=== PATIENT | male | born 1950 | race Caucasian/White ===

== ENCOUNTER 2021-04-30 09:17 | Emergency (ER) | payer MEDICARE, OTHER, SELFPAY ==
[2021-04-30 09:21] VITALS: BP 156/86; PULSE 103; RESP 16; TEMP 36.7; O2SAT 96; BMI 30.7
--- NOTE | 2021-04-30 10:37 | DI.RAD.S_ITS ---
PROCEDURE: XR ABDOMEN MIN 2V INDICATIONS: constipation TECHNIQUE: 2 views of the abdomen were acquired. COMPARISON: None. FINDINGS: Surgical changes and devices: Suprapubic catheter noted. Bowel: No pneumoperitoneum. The bowel gas pattern is nonspecific Soft tissues: No masses; visualized solid organ contours appear normal in size. No suspicious abdominal calcifications. Bones: No suspicious bony abnormalities. IMPRESSION: Nonspecific bowel gas pattern without definite evidence of obstruction. If patient's symptoms persist or worsen, consider CT scan of the abdomen pelvis for additional evaluation. Dictated by: Juany Benitez MD, PhD on 04/30/2021 at 11:03 Approved by: Juany Benitez MD, PhD on 04/30/2021 at 11:05
--- NOTE | 2021-04-30 10:48 | PC.NURSE ---
Stephen flushed with 60mls of sterile water. Out put 1000mls. pt denies new pain or discomfort at this time. R total knee apr 27 pt complaints of constipation with mild abd discomfort. Pt reports taking his pain meds every 3 hrs (prescribed every 4) discomfort to bladder improved s/p stephen flushed
[2021-04-30 10:57] VITALS: PULSE 85; O2SAT 96
[2021-04-30 11:00] VITALS: PULSE 85; O2SAT 96
--- NOTE | 2021-04-30 11:04 | ED_ITS ---
HPI - Abdominal Pain General Chief Complaint: Urogenital-Male Stated Complaint: No bowel movements or urination post surgery Time Seen by Provider: 04/30/21 10:17 Source: patient Mode of arrival: Ambulatory Limitations: no limitations History of Present Illness HPI narrative: Patient is a 70-year-old male right total knee arthroplasty status post day number 3. The presents to today with constipation. He had a feliz rgery 3 days ago his last bowel movement was 4 days ago. He has been taking pain medications on a regular basis. He also has been taking MiraLax daily today he added 2 Senokot and has been drinking prune juice. He feels like he has pressure in his rectum but unable to go. He has also had urinary retention and Oneal catheter was placed postoperatively. It sounds as though is a difficult of Oneal catheter and urology had to place it with a guidewire. Initially catheter was not working he noticed some decreased drainage in his bag last night. Today the catheter has been flushed and now seems to be working appropriately. He has no abdominal pain he has no nausea or vomiting. Quite concerned without any bowel movements. He normally has multiple bowel movements daily Related Data Home Medications Medication Instructions Recorded Confirmed metformin 500 mg tablet,extended 500 mg PO BID #0 11/15/16 release 24 hr (Glucophage XR) Previous Rx's Medication Instructions Recorded azithromycin 250 mg tablet 250 mg PO SEE INSTRUCTIONS #6 tab 07/04/17 (Zithromax) mefloquine 250 mg tablet 250 mg PO QDAY #27 tab 07/04/17 sildenafil (pulm.hypertension) 20 20 mg PO SEE INSTRUCTIONS PRN #90 07/04/17 mg tablet tab typhoid polysacch vaccine 25 25 mcg IM ONCE #1 syr 07/04/17 mcg/0.5 mL intramuscular syringe (Typhim ) Allergies Allergy/AdvReac Type Severity Reaction Status Date / Time No Known Drug Allergies Allergy Unknown Verified 04/30/21 09:22 [NO KNOWN DRUG ALLERGIES] Review of Systems Review of Systems Narrative: GENERAL: Denies chills, fatigue, malaise, fever, sweats, travel HEENT: Denies sinus pain, ear pain, sore throat, difficulty swallowing, neck pain RESPIRATORY: Denies dyspnea, cough, wheezing, hemoptysis, sputum. CARDIOVASCULAR: Denies chest pain, palpitations, orthopnea, edema GASTROINTESTINAL: Constipation, see HPI : + BPH, Oneal catheter MUSCULOSKELETAL: Recent surgery right knee SKIN: No rash, no erythema, no pruritus NEUROLOGIC: Denies weakness, dizziness, headache, numbness, change in speech, confusion PSYCHIATRIC: No concerning psychosocial issues. 12 point review of systems is negative except for those stated above and HPI Patient History Social History Smoking Status: Unknown if ever smoked Smoking Status: Unknown if ever smoked alcohol intake frequency: 0-2 drinks per day Substance Use Type: does not use Exam Initial Vital Signs Initial Vital Signs: Vital Signs Temperature 98.1 F 04/30/21 09:21 Pulse Rate 103 H 04/30/21 09:21 Respiratory Rate 16 04/30/21 09:21 Blood Pressure 156/86 H 04/30/21 09:21 Pulse Oximetry 96 04/30/21 09:21 GENERAL: Alert well-appearing 62-year-old male and in no acute distress. HEENT: Head atraumatic,EOMI, pupils reactive, face symmetric, moist mucous membranes CARDIOVASCULAR: Regular rate and rhythm without murmurs, rubs or gallops. RESPIRATORY: Breath sounds equal bilaterally, no wheezes rales or rhonchi. ABDOMEN: Soft, nontender. Normoactive bowel sounds all 4 quadrants. No guarding or rebound. No distention : Oneal catheter placed flushed and working appropriately EXTREMITIES: Normal range of motion, no clubbing or edema. Neurovascularly intact NEUROLOGICAL: Alert and oriented x4.Normal gait and speech. SKIN: Warm, dry, no laceration, no petechiae, no rashes or lesions. Course Orders Ordered: ED Orders 04/30/21 10:37 XR abdomen min 2V Stat Vital Signs Vital signs: Vital Signs - 8 hr 04/30/21 10:57 04/30/21 11:00 04/30/21 11:30 Pulse Rate 85 85 79 Blood Pressure Pulse Oximetry 96 96 95 04/30/21 11:41 Pulse Rate 80 Blood Pressure 132/80 Pulse Oximetry 94 MDM - Abdominal Pain Imaging Data Abdominal x-ray: Radiologist's Impression: PROCEDURE:? XR ABDOMEN MIN 2V ? INDICATIONS:? constipation ? TECHNIQUE:? 2 views of the abdomen were acquired.? ? COMPARISON:? None. ? FINDINGS:? Surgical changes and devices:? Suprapubic catheter noted. ? Bowel:? No pneumoperitoneum.? The bowel gas pattern is nonspecific ? Soft tissues:? No masses; visualized solid organ contours appear normal in size.? No suspicious abdominal calcifications.? ? Bones:? No suspicious bony abnormalities.? ? IMPRESSION:? Nonspecific bowel gas pattern without definite evidence of obstruction.? If patient's symptoms persist or worsen, consider CT scan of the abdomen pelvis for additional evaluation. ? ? Dictated by: Juany Benitez MD, PhD on 04/30/2021 at 11:03 ? ? MDM Narrative Medical decision making narrative: Patient abdomen is soft. He did have some Oneal catheter drainage which has been flushed resolved and now the Oneal catheter is working appropriately. He is 3 days postoperative on pain medications with out a bowel movement. He is currently taking all outpatient medications as directed he feels like he has pressure in his rectum has not had a bowel movement. He took 2 Senokot this morning and has still been unsuccessful. At this time I provided reassurance. I do not think indicated for prescription laxative this time. I encouraged him to continue his [id number] counter bowel regimen. He is given strict return precautions and all questions have been addressed and answered Discharge Plan Departure Patient Disposition: Home Clinical Impression: Constipation Instructions: DI for Constipation Activity Restrictions/Additional Instructions: *You have been diagnosed with constipation *What to do: At this time constipation is likely multitude of factors including recent surgery, pain medications, decreased movement. I recommend continuing to increase her water intake increased movement as tolerated. 1 G of had a bowel movement I recommend backing off your laxatives and bowel regimen *Continue to take medications as directed MiraLax once daily as directed as needed for constipation Senokot-S 2 tabs twice a day as needed for constipation Colace 100 mg twice a day as needed for constipation *Follow up with your primary care provider in 2-3 days *Return to ER if you should have increasing abdominal pain, decreased urine output, at increasing nausea or vomiting any new, worsening or concerning symptoms Prescriptions: No Action metformin [Glucophage XR] 500 MG tablet extended release 24 hr 500 mg PO BID Qty: 0 RF: 0 azithromycin [Zithromax] 250 MG tablet 250 mg PO SEE INSTRUCTIONS Qty: 6 RF: 0 mefloquine 250 MG tablet 250 mg PO QDAY Qty: 27 RF: 0 typhoid polysacch vaccine [Typhim ] 25 MCG/0.5 ML syringe 25 mcg IM ONCE Qty: 1 RF: 0 sildenafil (pulm.hypertension) 20 MG tablet 20 mg PO SEE INSTRUCTIONS PRNQty: 90 RF: 2
[2021-04-30 11:30] VITALS: PULSE 79; O2SAT 95
[2021-04-30 11:41] VITALS: BP 132/80; PULSE 80; O2SAT 94
== END 2021-04-30 11:52 | disposition home or self-care (01) ==
PROVIDERS: Emergency Provider Emergency Medicine
DX: K59.00 Constipation, unspecified (principal); R33.9 Retention of urine, unspecified; Z98.890 Other specified postprocedural states
CPT/HCPCS: 51700; 51798; 74019; 99283; 99284

== ENCOUNTER 2021-05-05 17:58 | Emergency (ER) | payer MEDICARE, OTHER, SELFPAY ==
[2021-05-05] VITALS (7 sets, daily range): BP systolic 120–145; BP diastolic 73–80; PULSE 82–94; RESP 16; TEMP 37.1; O2SAT 95–97; BMI 22.2
--- NOTE | 2021-05-05 19:14 | PC.NURSE ---
Addendum entered by Cynthia Castro R.N. 05/05/21 20:19: Changed catheter bag, removed tape and bladder started draining freely. Addendum entered by Cynthia Castro R.N. 05/05/21 19:30: Flushed catheter, got multiple large clots out, flushed freely after. 400 total out of bladder. Original Note: Patient has indwelling stephen cath for urinary retention post knee replacement. Was flushed on Monday, returns for similar complaint.
--- NOTE | 2021-05-05 20:16 | ED.MALEGU ---
HPI - Male Genitourinary General Chief complaint: Urogenital-Male Stated complaint: plugged catheter Time Seen by Provider: 05/05/21 19:51 History of Present Illness HPI Narrative: Patient here with . Complaints of urinary retention despite having a Oneal catheter in place. Onset 2:00 p.m. today. Prior to 2:00 p.m. p.m. to urine bag about 800 mL of urine. Patient states it was placed on April 27 at [facility] for orthopedic surgery. No prior diagnosis of enlarged prostate. Urology had to place the Oneal catheter in during the visit for orthopedic surgery. Has follow-up appointment tomorrow with Urology. Adjustments to the catheter here allowed for improved flow of urine into the bag. Bladder scan completed. Please see nurse's notes. No recent illness. No fever chills. Related Data Home Medications Medication Instructions Recorded Confirmed metformin 500 mg tablet,extended 1,000 mg PO DAILY #0 11/15/16 05/05/21 release 24 hr (Glucophage XR) apixaban 5 mg tablet (Eliquis) 5 mg PO BID 05/05/21 05/05/21 sildenafil (pulm.hypertension) 20 20 mg PO SEE INSTRUCTIONS 05/05/21 05/05/21 mg tablet Allergies Allergy/AdvReac Type Severity Reaction Status Date / Time No Known Drug Allergies Allergy Unknown Verified 04/30/21 09:22 [NO KNOWN DRUG ALLERGIES] Review of Systems Review of Systems Narrative: GENERAL: Denies chills, fatigue, malaise, fever, sweats. HEENT: Denies sinus pain, ear pain, sore throat RESPIRATORY: Denies dyspnea, cough CARDIOVASCULAR: Denies chest pain, palpitations GASTROINTESTINAL: Denies nausea, vomiting, abdominal pain : Denies dysuria, frequency, hematuria, complaints retention MUSCULOSKELETAL: denies muscle or bony pain SKIN: Denies rash, skin lesions NEUROLOGIC: Denies weakness, numbness ROS Unobtainable: All systems reviewed & are unremarkable except as noted in HPI and below Patient History Social History Smoking Status: Unknown if ever smoked Smoking Status: Unknown if ever smoked alcohol intake frequency: 0-2 drinks per day Substance Use Type: does not use Exam Narrative Exam Narrative: GENERAL: in no distress, not toxic not dyspneic HEAD: Normocephalic. GASTROINTESTINAL: Abdomen soft, non-tender, no suprapubic distention or tenderness. Catheter in place. No blood at meatus. No erythema. NEURO: AOx4. SKIN: Warm and dry PSYCH: Not anxious, is cooperative Initial Vital Signs Initial Vital Signs: Vital Signs Temperature 98.7 F 05/05/21 18:04 Pulse Rate 94 H 05/05/21 18:04 Respiratory Rate 16 05/05/21 18:04 Blood Pressure 145/80 H 05/05/21 18:04 Pulse Oximetry 97 05/05/21 18:04 Course Course Course Narrative: Improved urine flow with catheter adjustments by nurse. Orders Ordered: ED Orders 05/05/21 20:12 Urinalysis and Microscopic Stat Urine Culture Stat Reevaluation(s) Reevaluation #1: Improved urine flow after adjustment of 2 being of the catheter by nurse. Time: 20:18 Vital Signs Vital signs: Vital Signs - 8 hr 05/05/21 18:53 05/05/21 19:00 05/05/21 19:30 Pulse Rate 94 H 89 90 Blood Pressure 124/73 127/79 Pulse Oximetry 97 95 96 05/05/21 20:00 05/05/21 20:30 05/05/21 21:00 Pulse Rate 87 86 82 Blood Pressure 121/74 132/79 120/73 Pulse Oximetry 96 96 95 MDM - Male Genitourinary Differential Diagnosis Differential diagnosis: Likely other (Oneal catheter malfunction/obstruction) Lab Data Labs: Lab Results 05/05/21 Range/Units 20:12 Urine Color Yellow Urine Appearance Clear Urine pH 5.5 (4.5-8.0) Ur Specific [place] 1.015 (1.000-1.035) Urine Protein Negative (Negative) Urine Glucose (UA) Trace H (Negative) g/dL Urine Ketones Negative (NEGATIVE) Urine Occult Blood 3+ H (Negative) Urine Nitrate Negative (Negative) Urine Bilirubin Negative (NEGATIVE) Urine Urobilinogen 0.2 (0.2) E.U./dL Ur Leukocyte Esterase Trace H (NEGATIVE) Urine RBC 5-10/hpf H (0-5/HPF) Urine WBC 5-10/hpf H (0-5/HPF) Urine Bacteria None seen (None) Ur Culture Indicated? Specimen cultured MDM Narrative Medical decision making narrative: Appropriate discharge home. Adjustment needed on the catheter tubing, completed by nurse. Now free flowing. Return precautions reviewed with patient. He does have appointment tomorrow with Urology. No antibiotics at this time. No bacteria in urine. No fever. Discharge Plan Departure Patient Disposition: Home Clinical Impression: Malfunction of Oneal catheter Qualifiers: Encounter type: initial encounter Qualified Code(s): T83.011A - Breakdown (mechanical) of indwelling urethral catheter, initial encounter Instructions: How to Care for Your Oneal Catheter -- Male Activity Restrictions/Additional Instructions: Continue Oneal catheter instructions from your urologist. See your neurologist tomorrow as scheduled. Return if worse or any troubles with the catheter any questions or concerns. Prescriptions: No Action metformin [Glucophage XR] 500 MG tablet extended release 24 hr 1,000 mg PO DAILY Qty: 0 RF: 0 Eliquis 5 mg Tablet 5 mg PO BID RF: 0 sildenafil (pulm.hypertension) 20 MG tablet 20 mg PO SEE INSTRUCTIONS RF: 0
[2021-05-05 20:27] LABS: Bacteria Urine None Seen
[2021-05-05 20:29] LABS: Appearance Urine UA CLEAR; Bilirubin Urine UA NEGATIVE (NEGATIVE); Color Urine UA YELLOW; Glucose Urine UA TRACE g/dL (Negative); Ketones Urine UA NEGATIVE (NEGATIVE); Leukocyte Esterase Urine UA TRACE (NEGATIVE); Nitrite Urine UA NEGATIVE (Negative); Occult Blood Urine UA 3+ (Negative); Protein Urine UA NEGATIVE (Negative); Specific Gravity Urine UA 1.015 (1.000-1.035); Urobilinogen Urine UA 0.2 E.U./dL (0.2); pH Urine UA 5.5 (4.5-8.0)
[2021-05-05 20:54] LABS: Culture Indicated Urine Specimen Cultured; RBC Urine 5-10/HPF (0-5/HPF); WBC Urine 5-10/HPF (0-5/HPF)
== END 2021-05-05 21:19 | disposition home or self-care (01) ==
PROVIDERS: Emergency Provider Emergency Medicine
DX: T83.011A Breakdown (mechanical) of indwelling urethral catheter, initial encounter (principal)
CPT/HCPCS: 81001; 87086; 99282

== ENCOUNTER → 2021-06-01 11:24 | Outpatient (CLI) | payer MEDICARE, OTHER, SELFPAY | PROVIDERS: Referring Provider Nurse Practitioner Family; Visit Provider Nurse Practitioner Family | DX: N34.3 Urethral syndrome, unspecified (principal) | CPT/HCPCS: 87077; 87086; 87186 ==

== ENCOUNTER 2023-07-19 16:24 | Emergency (ER) | payer MEDICARE, OTHER, SELFPAY ==
[2023-07-19 16:28] VITALS: BP 170/84; PULSE 92; RESP 18; TEMP 37.3; O2SAT 96; BMI 33.0
--- NOTE | 2023-07-19 16:31 | DI.RAD.S_ITS ---
PROCEDURE: XR SHOULDER LT MIN 2V INDICATIONS: pain after fall TECHNIQUE: 2 views of the shoulder were acquired. COMPARISON: None. FINDINGS: Bones: There is a fracture of the left humeral head and neck, with mild impaction and comminution. No shoulder dislocation can be seen. The visualized ribs appear intact. No suspicious lytic or blastic lesions are seen. Underlying degenerative changes are seen. Soft tissues: No suspicious soft tissue calcifications. The visualized lung demonstrates an unremarkable appearance. IMPRESSION: Fractures of the left humeral head and neck. No dislocation can be seen. If it would be helpful for clinical management decision making in this patient with this given history, please consider a dedicated shoulder CT. Dictated by: Shaggy Collado M.D. on 07/19/2023 at 16:09 Approved by: Shaggy Collado M.D. on 07/19/2023 at 16:10
[2023-07-19] MEDS: IBUPROFEN 400 MG TABLET 800 MG PO (17:39)
[2023-07-19] MEDS: ACETAMINOPHEN 325 MG TABLET 975 MG PO (17:39)
[2023-07-19 17:45] VITALS: BP 138/81; PULSE 94; RESP 18; O2SAT 95
--- NOTE | 2023-07-19 18:19 | ED_ITS ---
HPI - Extremity Injury (Upper) <Jennifer Cunningham PA-C - Last Filed: 07/19/23 18:25> General Chief Complaint: Extremity Injury, Upper Stated Complaint: poss broken L arm Time Seen by Provider: 07/19/23 16:46 Source: patient Mode of arrival: Ambulatory History of Present Illness HPI narrative: Patient is a 73 year old male who presents with left upper extremity pain. He was walking a 90 lb dog who took off running and he was pulled forward and fell. Immediately felt left upper extremity pain near his shoulder. She has not taken any medication or tried any therapy. He does not have a history of shoulder problems. Pain is 3/10. Related Data Home Medications Medication Instructions Recorded Confirmed metformin 500 mg tablet,extended 1,000 mg PO DAILY ##0 11/15/16 05/05/21 release 24 hr (Glucophage XR) apixaban 5 mg tablet (Eliquis) 5 mg PO BID 05/05/21 05/05/21 sildenafil (pulm.hypertension) 20 20 mg PO SEE INSTRUCTIONS 05/05/21 05/05/21 mg tablet Allergies Allergy/AdvReac Type Severity Reaction Status Date / Time No Known Drug Allergies Allergy Unknown Verified 07/19/23 16:31 [NO KNOWN DRUG ALLERGIES] Review of Systems <Jennifer Cunningham PA-C - Last Filed: 07/19/23 18:25> Review of Systems ROS Unobtainable: All systems reviewed & are unremarkable except as noted in HPI and below Patient History <Jennifer Cunningham PA-C - Last Filed: 07/19/23 18:25> Social History Smoking Status: Never smoker Smoking Status: Never smoker alcohol intake frequency: 0-2 drinks per day Substance Use Type: does not use Exam <Jennifer Cunningham PA-C - Last Filed: 07/19/23 18:25> Narrative Exam Narrative: GENERAL: 73 year old patient appears stated age. Well-developed patient, in no distress. NEURO: AOx3. HEAD: Atraumatic. Normocephalic. EYES: Pupils equal round and reactive. Extraocular motions intact. No scleral icterus. No injection or drainage. ENT: Nose without bleeding or purulent drainage.Airway patent. RESPIRATORY: No distress or increased work of breathing EXTREMITIES: Diffuse left upper arm swelling without ecchymosis, warmth. Distal neurovascular exam intact, strong distal pulse. SKIN: No rash or erythema of visible areas Initial Vital Signs Initial Vital Signs: Vital Signs Temperature 99.1 F 07/19/23 16:28 Pulse Rate 92 H 07/19/23 16:28 Respiratory Rate 18 07/19/23 16:28 Blood Pressure 170/84 H 07/19/23 16:28 Pulse Oximetry 96 07/19/23 16:28 Oxygen Delivery Method Room Air 07/19/23 16:28 <Lisa Feliz DO - Last Filed: 07/20/23 07:47> Initial Vital Signs Initial Vital Signs: Vital Signs Temperature 99.1 F 07/19/23 16:28 Pulse Rate 92 H 07/19/23 16:28 Respiratory Rate 18 07/19/23 16:28 Blood Pressure 170/84 H 07/19/23 16:28 Pulse Oximetry 96 07/19/23 16:28 Oxygen Delivery Method Room Air 07/19/23 16:28 Course <Jennifer Cunningham PA-C - Last Filed: 07/19/23 18:25> Orders Ordered: Discontinued Medications Acetaminophen (Acetaminophen 325 Mg Tablet) 975 mg PO NOW ONE Stop: 07/19/23 17:29 Last Admin: 07/19/23 17:39 Dose: 975 mg Documented By: JENNIFER Ibuprofen (Ibuprofen 400 Mg Tablet) 800 mg PO NOW ONE Stop: 07/19/23 17:29 Last Admin: 07/19/23 17:39 Dose: 800 mg Documented By: JENNIFER Vital Signs Vital signs: Vital Signs - 8 hr 07/19/23 16:28 07/19/23 17:45 Temperature 99.1 F Pulse Rate 92 H 94 H Respiratory Rate 18 18 Blood Pressure 170/84 H 138/81 Pulse Oximetry 96 95 Oxygen Delivery Method Room Air Room Air <Lisa Feliz DO - Last Filed: 07/20/23 07:47> Orders Ordered: Discontinued Medications Acetaminophen (Acetaminophen 325 Mg Tablet) 975 mg PO NOW ONE Stop: 07/19/23 17:29 Last Admin: 07/19/23 17:39 Dose: 975 mg Documented By: JENNIFER Ibuprofen (Ibuprofen 400 Mg Tablet) 800 mg PO NOW ONE Stop: 07/19/23 17:29 Last Admin: 07/19/23 17:39 Dose: 800 mg Documented By: JENNIFER Vital Signs Vital signs: Vital Signs - 8 hr 07/19/23 16:28 07/19/23 17:45 Temperature 99.1 F Pulse Rate 92 H 94 H Respiratory Rate 18 18 Blood Pressure 170/84 H 138/81 Pulse Oximetry 96 95 Oxygen Delivery Method Room Air Room Air MDM - Extremity Injury (Upper) <Jennifer Cunningham PA-C - Last Filed: 07/19/23 18:25> Imaging Data Extremity x-ray #1: Radiologist's Impression: PROCEDURE: XR SHOULDER LT MIN 2V INDICATIONS: pain after fall TECHNIQUE: 2 views of the shoulder were acquired. COMPARISON: None. FINDINGS: Bones: There is a fracture of the left humeral head and neck, with mild impaction and comminution. No shoulder dislocation can be seen. The visualized ribs appear intact. No suspicious lytic or blastic lesions are seen. Underlying degenerative changes are seen. Soft tissues: No suspicious soft tissue calcifications. The visualized lung demonstrates an unremarkable appearance. IMPRESSION: Fractures of the left humeral head and neck. No dislocation can be seen. If it would be helpful for clinical management decision making in this patient with this given history, please consider a dedicated shoulder CT. Dictated by: Shaggy Collado M.D. on 07/19/2023 at 16:09 Approved by: Shaggy Collado M.D. on 07/19/2023 at 16:10 [facility] Narrative Medical decision making narrative: Multiple etiologies for patient's symptoms considered including, but not limited to: Left humerus fracture, AC joint separation clavicle fracture, shoulder dislocation, soft tissue injury. X-ray consistent with a radial head and neck fracture. Patient placed in a sling and referred to orthopedics. Patient declines offer of opiate pain medication, stating he would rather be in pain then be constipated. Given Tylenol and ibuprofen in emergency room. Advised rest, ice, pain control and close follow-up. Patient's symptoms improved over duration of stay with above-stated therapies. Findings and discharge diagnosis discussed with patient/family followed by verbalization of understanding Return precautions discussed with patient/family whom verbalize understanding of diagnosis and plan Discharge Plan Departure Patient Disposition: Home Clinical Impression: Fracture of neck of left humerus Qualifiers: Encounter type: initial encounter Fracture type: closed Qualified Code(s): S42.212A - Unspecified displaced fracture of surgical neck of left humerus, initial encounter for closed fracture Instructions: DI for Humeral Fracture Activity Restrictions/Additional Instructions: *You have been diagnosed with left humeral head and neck fracture. Please wear the sling to provide support to your arm. Please use Tylenol, ice, rest for pain. Please call the orthopedic clinic at your earliest convenience to schedule follow-up. Xray report: FINDINGS: Bones: There is a fracture of the left humeral head and neck, with mild impaction and comminution. No shoulder dislocation can be seen. The visualized ribs appear intact. No suspicious lytic or blastic lesions are seen. Underlying degenerative changes are seen. Soft tissues: No suspicious soft tissue calcifications. The visualized lung demonstrates an unremarkable appearance. *What to do: *Please continue to take your regular medications as directed. [ ] New medication prescriptions sent to your pharmacy: [ ] [ ] New medication written as a paper prescription [x ] No new medications given *Please follow up with your primary care provider in 2-3 days, call for an appointment. Let them know you were seen in the Emergency Department and that we ask that you be seen in follow up. We will electronically transmit a record of today's note if your PCP is in our system *If you do not have a primary care provider please contact the [facility] Resource line at [phone]. They will ask some questions about your medical history and help get you set up with a doctor in the community. *Return to Emergency Department if you should have any new, worsening or concerning symptoms, such as [fever greater than 101 F, shaking chills, worsening pain, persistent vomiting or other concerning symptoms]. Prescriptions: No Action metformin [Glucophage XR] 500 MG tablet extended release 24 hr 1,000 mg PO DAILY Qty: 0 Eliquis 5 mg Tablet 5 mg PO BID sildenafil (pulm.hypertension) 20 MG tablet 20 mg PO SEE INSTRUCTIONS Referrals: [facility] [Provider Group] Miscellaneous,[facility] [Primary Care Provider] - Stand Alone Forms: Patient Portal/API ED Sign-out <Lisa Feliz DO - Last Filed: 07/20/23 07:47> Cosign ED Attending Eloisaature Attestation: I was immediately available in the department for consultation. Images were reviewed.
== END 2023-07-19 18:06 | disposition home or self-care (01) ==
PROVIDERS: Emergency Provider Physician Assistant
DX: S42.212A Unspecified displaced fracture of surgical neck of left humerus, initial encounter for closed fracture (principal); W01.0XXA Fall on same level from slipping, tripping and stumbling without subsequent striking against object, initial encounter; Y93.K1 Activity, walking an animal
CPT/HCPCS: 73030; 99283

== ENCOUNTER 2024-11-25 14:15 | Emergency (ER) | payer MEDICARE, OTHER, SELFPAY ==
[2024-11-25 14:16] VITALS: BP 143/69; PULSE 80; RESP 16; TEMP 36.6; O2SAT 97; BMI 32.3
--- NOTE | 2024-11-25 14:36 | ED.EXTPRO ---
HPI - Extremity Problem <Liliam Richmond PA-C - Last Filed: 11/25/24 15:45> General Chief complaint: Extremity Problem,Nontraumatic Stated complaint: rt calf px and swelling sent by [facility] Time Seen by Provider: 11/25/24 14:22 Source: patient Mode of arrival: Ambulatory History of Present Illness HPI Narrative: Mr. 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 He is a retired PA. Patient states he had right lower extremity DVT after a right knee surgery 5 years ago, he is not currently taking any anticoagulation and is not quite sure about history of Eliquis however it is in his chart. States that he currently has 2 dogs, 1 young puppy and while walking them about 1 week ago he had left calf pain which she figured was a muscle strain however when he woke up today left calf pain was more significant and he noticed some swelling in the leg. Describes the pain as a muscle cramp in the left calf. No direct trauma to the leg. No recent travel, prolonged sitting or immobility, no trauma to the left leg. Describes pain is very mild, declines need for pain medication. No numbness tingling or weakness. No fevers, chills, chest pain, shortness of breath, abdominal pain. He was initially seen in the walk-in clinic but sent for ultrasound/DVT rule out. Related Data Home Medications Medication Instructions Recorded Confirmed metformin 500 mg tablet,extended 1,000 mg PO DAILY ##0 11/15/16 11/25/24 release 24 hr (Glucophage XR) apixaban 5 mg tablet (Eliquis) 5 mg PO BID 05/05/21 11/25/24 sildenafil (pulm.hypertension) 20 20 mg PO SEE INSTRUCTIONS 05/05/21 11/25/24 mg tablet metronidazole 0.75 % topical cream 1 applic topical BID 08/13/24 11/25/24 rosuvastatin 10 mg tablet 10 mg PO ONCE PM 08/13/24 11/25/24 tadalafil 5 mg tablet 5 mg PO DAILY 08/13/24 11/25/24 tamsulosin 0.4 mg capsule 0.8 mg PO DAILY 08/13/24 11/25/24 terbinafine HCl 250 mg tablet 250 mg PO DAILY 08/13/24 11/25/24 Previous Rx's Medication Instructions Recorded valacyclovir 1 gram tablet 1,000 mg PO TID #21 tabs 08/13/24 (Valtrex) Allergies Allergy/AdvReac Type Severity Reaction Status Date / Time No Known Drug Allergies Allergy Unknown Verified 11/25/24 14:07 [NO KNOWN DRUG ALLERGIES] Review of Systems <Liliam Richmond PA-C - Last Filed: 11/25/24 15:45> Review of Systems ROS Unobtainable: All systems reviewed & are unremarkable except as noted in HPI and below Patient History <Liliam Richmond PA-C - Last Filed: 11/25/24 15:45> Social History Smoking Status: Never smoker Smoking Status: Never smoker alcohol intake frequency: 0-2 drinks per day Alcohol type: beer and hard liquor Exam <Liliam Richmond PA-C - Last Filed: 11/25/24 15:45> Narrative Exam Narrative: GENERAL: 74 year old patient appears stated age. Well-developed patient, in no acute distress. NECK: Trachea midline. Cervical ROM intact. CARDIOVASCULAR: Regular rate and rhythm. RESPIRATORY: Nonlabored respirations. Speaking in clear, full sentences. Clear to auscultation. Breath sounds equal bilaterally. No wheezes, rales, or rhonchi. GASTROINTESTINAL: Abdomen soft, non-tender, nondistended. EXTREMITIES: Mild bilateral lower extremity edema noticed by sock imprint on legs, more prominent on left lower extremity. Strong DP and PT pulses bilaterally and brisk capillary refill in the toes. Sensation intact to light touch in the dorsal and plantar aspect of the feet. Subjective pain in the left calf exacerbated by plantar and dorsiflexion of the left ankle. No bony tenderness to palpation of the left ankle, left knee, left colin. NEURO: AOx3. Clear speech. Moves all 4 extremities appropriately. SKIN: No rashes, bruising or erythema of the left lower extremity. Initial Vital Signs Initial Vital Signs: Vital Signs Temperature 97.9 F 11/25/24 14:16 Pulse Rate 80 11/25/24 14:16 Respiratory Rate 16 11/25/24 14:16 Blood Pressure 143/69 H 11/25/24 14:16 Pulse Oximetry 97 11/25/24 14:16 Oxygen Delivery Method Room Air 11/25/24 14:16 <Lisa Feliz DO - Last Filed: 11/29/24 03:27> Initial Vital Signs Initial Vital Signs: Vital Signs Temperature 97.9 F 11/25/24 14:16 Pulse Rate 80 11/25/24 14:16 Respiratory Rate 16 11/25/24 14:16 Blood Pressure 143/69 H 11/25/24 14:16 Pulse Oximetry 97 11/25/24 14:16 Oxygen Delivery Method Room Air 11/25/24 14:16 Course <Liliam Richmond PA-C - Last Filed: 11/25/24 15:45> Orders Ordered: ED Orders 11/25/24 14:35 periph venous low extrem lt Stat Vital Signs Vital signs: Vital Signs - 8 hr 11/25/24 14:16 Temperature 97.9 F Pulse Rate 80 Respiratory Rate 16 Blood Pressure 143/69 H Pulse Oximetry 97 Oxygen Delivery Method Room Air <Lisa Feliz DO - Last Filed: 11/29/24 03:27> Orders Ordered: ED Orders 11/25/24 14:35 perip venous low extrem lt Stat Vital Signs Vital signs: Vital Signs - 8 hr 11/25/24 14:16 Temperature 97.9 F Pulse Rate 80 Respiratory Rate 16 Blood Pressure 143/69 H Pulse Oximetry 97 Oxygen Delivery Method Room Air MDM - Extremity (Nontraumatic) <Liliam Richmond PA-C - Last Filed: 11/25/24 15:45> Medical Records Attestation: I reviewed the patient's medical records. Imaging Data LLE VEnous US: Radiologist's Impression: PROCEDURE: US PERIPH VENOUS LOW EXTREM LT INDICATIONS: LLE pain /swelling, concern DVT TECHNIQUE: Real-time imaging, as well as color and pulse Doppler interrogation, were performed of the lower extremity deep veins from the inguinal ligament to the popliteal fossa, with documentation of the visualized calf veins. COMPARISON: None. FINDINGS: The common femoral, femoral, popliteal, and the visualized calf veins are normally compressible, and free of intraluminal thrombus. Color and pulse Doppler demonstrate normal phasic intraluminal flow. There is normal augmentation response to distal compression maneuver. IMPRESSION: No findings of lower extremity deep venous thrombosis. MDM Narrative Medical decision making narrative: 74-year-old male with a past medical history of TT DM on metformin, right facial shingles on gabapentin who presents to the emergency department for left lower extremity calf pain and swelling x1 week. Differential diagnosis includes but is not limited to DVT, superficial thrombophlebitis, muscle strain, muscle spasm, etc. On exam patient is in no acute distress, nontoxic appearing, vital signs within normal limits. He has sensation of left calf cramping, mild increased swelling in left lower extremity compared to right however overall athletic build of lower extremities with strong pulses, neurovascularly intact. Hx of what sounds like a provoked RLE DVT, no longer on AC, however history unclear. We will obtain ultrasound imaging of left lower extremity to further evaluate for potential DVT. Patient declines pain medication, no bony tenderness or direct injury necessitating x-ray. Left lower extremity venous ultrasound negative for DVT. Patient requesting discharge to get to an outpatient appointment. At this time he has strong pulses, no difficulty with ambulation, no signs of infection. Recommended follow up with PCP for further evaluation and discussed strict ED return precautions. Patient verbalized understanding of all information is agreeable to the plan. Rice therapy and ibuprofen/ acetaminophen recommended. He is stable for discharge home. Discharge Plan Departure Patient Disposition: Home Clinical Impression: Pain of left calf Instructions: DI for Calf Muscle Strain Activity Restrictions/Additional Instructions: Dear Maranda, Thank you for coming to the emergency department. Today we obtained an ultrasound of your left lower extremity which revealed no blood clot. The final report of your ultrasound has not yet resulted, however you were discharged from the ER in order to get to your ENT appointment. I will call you if your final radiology ultrasound report is anything different from the preliminary report. Please use RICE therapy for your pain in addition to ibuprofen/acetaminophen. Rest the painful area. Ice the area of pain/swelling for at least 15 minutes, 4x a day. You may also use gentle heat therapy. Compress the area of swelling using a brace, wrap, or splint if applied. Elevate the painful or swollen extremity by supporting it above the level of the heart with pillows when sitting or laying. Please take Ibuprofen (Motrin/Advil) or Acetaminophen (Tylenol) for pain. These are available over the counter. You may take Ibuprofen 600 mg every 8 hours with food for pain. You may also take Acetaminophen 650 mg every 4-6 hours for pain. Do not exceed 3000 mg of Tylenol a day as this can cause liver damage. Do not drink alcohol with either of these medications. Please follow up with your primary care doctor within the next 2-3 days for ER follow-up. (If you do not have a PCP you can call [phone]. to schedule an appointment with an [facility] Primary Care Provider) IF YOU DEVELOP ANY NEW OR WORSENING SYMPTOMS, RETURN TO THE ER! Please read the attached instructions, they highlight more specific treatments and interventions for you at home. Thank you for letting me participate in your care, Liliam Richmond PA-C Prescriptions: No Action tamsulosin 0.4 mg capsule 0.8 mg PO DAILY metronidazole 0.75 % cream 1 applic topical BID terbinafine HCl 250 mg tablet 250 mg PO DAILY tadalafil 5 mg tablet 5 mg PO DAILY rosuvastatin 10 mg tablet 10 mg PO ONCE PM valacyclovir [Valtrex] 1 gram tablet 1,000 mg PO TID Qty: 21 0RF metformin [Glucophage XR] 500 MG tablet extended release 24 hr 1,000 mg PO DAILY Qty: 0 Eliquis 5 mg Tablet 5 mg PO BID sildenafil (pulm.hypertension) 20 MG tablet 20 mg PO SEE INSTRUCTIONS Referrals: Miscellaneous,Doctor, MD [Primary Care Provider] - Stand Alone Forms: Patient Portal/API/Survey ED Sign-out <Lisa Feliz DO - Last Filed: 11/29/24 03:27> Cosign ED Attending Jaime Attestation: I was immediately available in the department for consultation.
--- NOTE | 2024-11-25 15:04 | PC.NURSE ---
Pt states he does have a history of a blood clot in his leg after a fracture years ago. I asked pt if he was prescribed a blood thinner at that time, pt responds that he was taking one for a brief time. He denies current use of anticoagulants. States pain is not terrible but was encouraged to get checked out.
--- NOTE | 2024-11-25 15:12 | PC.NURSE ---
PT has a scheduled appt with Dr. Hoff at ENT at 1545. Pt gave consent and I called to inform ENT that pt was in the ER and should be able to make the appt but wanted to give them a heads up incase pt was a few minutes late. Catarina at ENT office states if pt can arrive by 1610 they will be able to see him today. Informed pt. # [phone]
[2024-11-25 15:42] VITALS: BP 137/82; PULSE 70; RESP 15; O2SAT 94
== END 2024-11-25 15:45 | disposition home or self-care (01) ==
PROVIDERS: Emergency Provider Physician Assistant
DX: M79.662 Pain in left lower leg (principal)
CPT/HCPCS: 93971; 99281; 99283

== ENCOUNTER → 2025-01-06 16:29 | Outpatient (CLI) | payer MEDICARE, OTHER, SELFPAY ==
--- NOTE | 2025-01-06 16:34 | DI.RAD.S_ITS ---
PROCEDURE: XR CHEST 2V INDICATIONS: COUGH TECHNIQUE: 2 views of the chest were acquired. COMPARISON: None. FINDINGS: Surgical changes and devices: None. Lungs and pleura: Lungs are clear. No pleural effusions or pneumothorax. Mediastinum: Mediastinal contours are normal. Heart size is normal. Bones and chest wall: No suspicious bony abnormalities. Soft tissues appear unremarkable. IMPRESSION: No acute cardiopulmonary abnormality is seen. Dictated by: Gildardo Botello M.D. on 01/06/2025 at 16:48 Approved by: Gildardo Botello M.D. on 01/06/2025 at 16:50
== END ==
PROVIDERS: Referring Provider Physician Assistant; Visit Provider Physician Assistant
DX: R05.9 Cough, unspecified (principal)
CPT/HCPCS: 71046